=== PATIENT | male | born 1965 | race Caucasian/White ===

== ENCOUNTER → 2017-08-18 | Outpatient (CLI) | payer BC ==
[~2017-08-18] MED LIST: LISI-519 PO; MELO7.5T27 PO; OXYC-395 PO; TOPI25TA7 PO
--- NOTE | 2017-08-19 10:28 | RSPPFT ---
DATE OF PROCEDURE: 08/18/17 COMMENTS: Spirometry with FVC of 3.8 predicted 4.6, FEV1 of 2.2 predicted 3.7, FEV1/FVC ratio 60% predicted 81%. Post-bronchodilator FEV1 increases to 2.6. Air trapping is present with RV at 4.0 predicted 2.1. Airways resistance is increased. TLC is 66% of predicted. IMPRESSION: On the basis of the above, patient has an obstructive lung defect with responsiveness to acutely inhaled bronchodilator. Airways resistance is increased. Air trapping is present.
== END ==
LOC: HRSP 12:53
PROVIDERS: ATTEND Hospitalist
DX: R06.00 Dyspnea, unspecified (principal)
CPT/HCPCS: 94060; 94726; 94729